=== PATIENT | female | born 1960 | race Hispanic/Latino ===

== ENCOUNTER 2020-06-02 20:13 | Emergency (ER) | payer OTHER, SELFPAY ==
[2020-06-02 20:15] VITALS: BP 114/96; PULSE 68; RESP 16; TEMP 36.6; O2SAT 98; BMI 29.7
--- NOTE | 2020-06-02 20:35 | ED.VIS.GEN ---
History of Present Illness Chief Complaint: Complaint Detail of Chief Complaint: Dysuria, frequency, urgency Informant: Patient Onset: Yesterday Context: Sudden Onset Timing: Intermittent Quality: Urinary symptoms Location: Lower GI Current Severity: - Maximum Severity: Moderate Worsened by: Urination Relieved by: Nothing Associated Symptoms: Pressure suprapubic area and chills Narrative: Patient is a 59-year-old woman who presents with dysuria, frequency, urgency that started last evening. Symptoms worse today. She reports chills without fever. She denies nausea or vomiting. She denies back or flank pain. Last urinary tract infection was 1 year ago. She is on no immunosuppressive meds. She had a serum sickness type reaction to sulfa. She denies headache, visual, ocular auditory symptoms. She denies cardiac respiratory symptoms. Prior similar symptoms: Yes Recent Illness/Hospitalization: No - Past Medical History (1) No significant past medical history Status: Acute Past Medical History - Allergies and Home Meds Allergies/Adverse Reactions: Allergies Sulfa (Sulfonamide Antibiotics) Allergy (Verified 06/02/20 20:14) Swollen lymph glands Primary Care Physician: Jose J Doctor,Out of [NON-STAFF] - Prior records reviewed: Yes Surgical History: noncontributory Lives: Spouse/ Significant Other Smoking Status: Former smoker Alcohol: Rare Drugs: None Review of Systems General: Reports: Chills. Denies: Fever, Malaise, Subjective, Sweats Eyes: Denies: Visual changes - bilaterally ENT: Denies: Rhinorrhea, Sore throat Cardiovascular: Denies: Chest pain Respiratory: Denies: Dyspnea, Cough Gastrointestinal: Reports: Abdominal pain. Denies: Nausea, Vomiting, Diarrhea Genitourinary: Reports: Dysuria, Hematuria, Frequency, -, - Musculoskeletal: Denies: Myalgias, Arthralgias, Neck pain, Back pain, Swelling, Extremity Pain Skin: Denies: Rash, Wounds Neurological: Denies: Headache, Weakness Hematologic: Denies: Easy bruising, Easy bleeding Allergy: Denies: Uticaria Physical Exam Vital Signs/Narrative: Vital Signs Temp Pulse Resp BP Pulse Ox 06/02/20 20:15 97.8 F 68 16 114/96 H 98 Inital Vital Signs reviewed: Yes General: Well nourished, Well developed, No Acute Distress Head: Normocephalic, Atraumatic Eyes: Perrl, EOMI. Negative for: Pale conjunctiva, Scleral icterus ENT: Moist mucous membranes, No rhinorrhea Neck: Supple, Nontender Cardiovascular: Regular rate, Regular rhythm, No murmurs, Normal S1, Normal S2 Respiratory: No distress, CTA bilaterally, Chest nontender Abdomen: Soft, Nondistended, Normal bowel sounds, No masses, Tender - Prepubic tenderness Back: Nontender, Normal Inspection. Negative for: CVA tenderness Extremities: Nontender, No edema Skin: Normal color, No rash Neurological: Alert, Oriented x3, Cranial nerves II-XII grossly intact, Normal Strength, Normal Sensation Psychological: Normal affect, Normal Mood Diagnostic/Tx/Re-eval Laboratory Results 06/02/20 20:33 Urine Color Yellow Urine Clarity Sl. Cloudy Urine pH 6.0 Ur Specific [place] 1.020 Urine Protein Negative Urine Glucose (UA) Normal Urine Ketones Negative Urine Occult Blood 50 H Urine Nitrite Positive H Urine Bilirubin Negative Urine Urobilinogen Normal Ur Leukocyte Esterase 100 H Urine RBC 0-5 SEEN Urine WBC 25-50 SEEN Ur Squamous Epith Cells 0-5 SEEN Urine Bacteria 1+ Urine Mucus 0 SEEN Is consistent with urinary tract infection. Since she reports chills will treat with cephalexin for 7 days. - Medical Decision Making Presents with urinary tract symptoms. UA was obtained as well as culture. She received first dose of antibiotics in the emergency department. Differential diagnosis includes acute cystitis, complex urinary tract infection, interstitial cystitis ED Disposition - Plan for ED Patient: Disposition: Home or Assisted Living Diagnosis: Acute cystitis Instructions: ED CYSTITIS Female Adult Prescriptions: Cephalexin [Keflex] 500 mg PO Q6 #30 cap Transmission Status: Pending to [facility] Phenazopyridine HCl [Pyridium] 200 mg PO BID PRN PRN #10 tab PRN Reason: Pain Transmission Status: Pending to [facility] Referrals: [facility] Doctor,Out of [NON-STAFF] -
[2020-06-02 20:55] LABS: Mucous, Urine 0 SEEN /hpf (<or=2+)
[2020-06-02] MEDS: Phenazopyridine 95 MG Tablet 190 MG PO (20:56)
[2020-06-02] MEDS: Cephalexin 250 MG Capsule 500 MG PO (20:56)
[2020-06-02 21:06] LABS: Color, Urine Yellow (Yellow); Glucose, Dipstick Normal (Normal); Ketone-Dipstick Negative (Negative); Leukocyte Esterase-Dipstick 100 /ul (Negative); Nitrite-Dipstick Positive (Negative); Occult Blood-Urine 50 /ul (Negative); Protein-Dipstick Negative (Negative); Urine Bilirubin Dipstick Negative (Negative); Urine Clarity Sl. Cloudy (Clear); Urine Urobilinogen Normal (Normal)
[2020-06-02 21:12] LABS: Bacteria 1+ /hpf (None Seen); White Blood Cells 25-50 SEEN /hpf (0-5)
[2020-06-02 21:13] LABS: Red Blood Cells-Urine 0-5 SEEN /hpf (0-5); Squamous Epithelial Cells - UA 0-5 SEEN /hpf (5-10)
[2020-06-02 21:45] VITALS: BP 135/80; PULSE 76; RESP 12; O2SAT 98
== END 2020-06-02 21:46 | disposition home or self-care (01) ==
PROVIDERS: Emergency Provider Emergency Medicine
DX: N30.00 Acute cystitis without hematuria (principal); Z87.891 Personal history of nicotine dependence; Z88.2 Allergy status to sulfonamides
CPT/HCPCS: 81001; 87086; 87088; 87186; 99283

== ENCOUNTER → 2025-02-12 | Outpatient (CLI) | payer OTHER, SELFPAY ==
--- NOTE | 2025-02-12 16:38 | RAD_ITS ---
PROCEDURE: KNEE 4 OR MORE VIEWS 02/12/2025 REASON FOR EXAM: RIGHT KNEE PAIN TECHNIQUE: 4 views of the right knee COMPARISON: None available FINDINGS: No fracture, dislocation or joint effusion. Chondrocalcinosis noted lateral greater than medial compartments. Very mild spurring seen at the medial and lateral compartments and medial aspect of the patellofemoral compartment. Joint spaces appear within limits. Enthesophyte formation quadriceps side of the patella. RAD/Knee 4 or More Views IMPRESSION: Chondrocalcinosis noted lateral greater than medial compartments. Very mild osteoarthrosis appearing as above. Reading Location: [id number]
== END | disposition home or self-care (01) ==
LOC: MTRAD 16:36
PROVIDERS: PCP Internal Medicine; Referring Provider Anesthesiology Pain Medicine; Visit Provider Anesthesiology Pain Medicine
DX: M25.561 Pain in right knee (principal)
CPT/HCPCS: 73564